=== PATIENT | male | born 1960 | race Caucasian/White ===

== ENCOUNTER 2018-08-22 15:45 | Emergency (ER) | payer MEDICAID ==
[~2018-08-22] VITALS: Ht 167.6 cm; Wt 96.7 kg
[2018-08-22 15:53] VITALS: BP 159/94; PULSE 101; RESP 20; Ht 167.6 cm; Wt 96.7 kg
[2018-08-22] MEDS ORDERED: CEPH-443 PO (17:55)
[2018-08-22] MEDS ORDERED: SULF1TAB31 PO (17:55)
[2018-08-22] MEDS ORDERED: BACITRACIN 0.9 GM OINT TOP ONE (18:00)
--- NOTE | 2018-08-23 14:01 | ERD ---
ER Documentation Chief Complaint Chief Complaint Complains of a abscess to left abdominal wall HPI 57-year-old male with type 2 diabetes presents with complaint of abscess to the left abdominal wall. States that it started 1 week ago and has been getting bigger. States that it is nontender to palpation. Denies any treatments. Denies any fevers, abdominal pain, chills, nausea, vomiting, diarrhea. ROS All systems reviewed and are negative except as per history of present illness. Medications Home Meds Active Scripts Sulfamethoxazole/Trimethoprim* (Bactrim Ds* Tablet) 1 Each Tablet, 1 TAB PO BID for abscess for 7 Days, #14 TAB Prov:KARTHIKEYAN JORDAN 08/22/18 Cephalexin* (Keflex*) 500 Mg Capsule, 500 MG PO QID for abscess for 7 Days, CAP Prov:KARTHIKEYAN JORDAN 08/22/18 Allergies Allergies: Coded Allergies: No Known Allergy (Unverified , 08/22/18) PMhx/Soc Medical and Surgical Hx: pt denies Medical Hx, pt denies Surgical Hx Hx Alcohol Use: No Hx Substance Use: No Hx Tobacco Use: No Smoking Status: Never smoker FmHx Family History: No diabetes, No coronary disease, No other Physical Exam Vitals Vital Signs Date Temp Pulse Resp B/P (MAP) Pulse Ox O2 O2 Flow FiO2 Time Delivery Rate 08/22/18 98.1 101 20 159/94 97 15:53 (115) Physical Exam Const: No acute distress Head: Atraumatic Eyes: Normal Conjunctiva ENT: Normal External Ears, Nose and Mouth. Neck: Full range of motion. No meningismus. Resp: Clear to auscultation bilaterally Cardio: Regular rate and rhythm, no murmurs Abd: Soft, non tender, non distended. Normal bowel sounds. Proximally 4 cm indurated mass, nonfluctuant nontender to palpation, with erythema noted over the left abdominal wall. Mass appears to be self draining. No lymphatic streaking noted. No cellulitis noted. Skin: No petechiae or rashes Back: No midline or flank tenderness Ext: No cyanosis, or edema Neur: Awake and alert Psych: Normal Mood and Affect Results 24 hrs Current Medications Medications Dose Sig/Lacey Start Time Status Last (Trade) Ordered Route PRN Stop Time Admin Dose Reason Admin Bacitracin 1 applic ONCE ONCE 08/22/18 DC (Bacitracin TOP 18:00 Oint (Ud)) 08/22/18 18:01 Procedures/MDM 57-year-old male with type 2 diabetes presents with complaint of abscess to the left abdominal wall. States that it started 1 week ago and has been getting bigger. States that it is nontender to palpation. Denies any treatments. Denies any fevers, abdominal pain, chills, nausea, vomiting, diarrhea. Abscess is indurated and nonfluctuant and nontender to palpation, therefore there is no indication for incision and drainage at this time. Abscess appears to be contained within the exterior of the abdominal wall, just below the dermis, and not communicating with any other organs. Patient was given Rx for Bactrim and Keflex and advised to use warm compresses and return in 1 week if the abscess is not resolved. Low suspicion for cellulitis, sepsis, or any other emergent con dition. Patient discharged with strict ER precautions. Patient advised to follow up with PMD. All questions answered at discharge. Departure Diagnosis: Primary Impression: Abscess Condition: Stable Patient Instructions: Abscess, Antiobiotic Treatment Only Referrals: [facility] YOU HAVE RECEIVED A MEDICAL SCREENING EXAM AND THE RESULTS INDICATE THAT YOU DO NOT HAVE A CONDITION THAT REQUIRES URGENT TREATMENT IN THE EMERGENCY DEPARTMENT. FURTHER EVALUATION AND TREATMENT OF YOUR CONDITION CAN WAIT UNTIL YOU ARE SEEN IN YOUR DOCTORS OFFICE WITHIN THE NEXT 1-2 DAYS. IT IS YOUR RESPONSIBILITY TO MAKE AN APPOINTMENT FOR FOLOW-UP CARE. IF YOU HAVE A PRIMARY DOCTOR --you should call your primary doctor and schedule an appointment IF YOU DO NOT HAVE A PRIMARY DOCTOR YOU CAN CALL OUR PHYSICIAN REFERRAL HOTLINE AT IF YOU CAN NOT AFFORD TO SEE A PHYSICIAN YOU CAN CHOSE FROM THE FOLLOWING [facility] [address] [facility] [address] [facility]. [facility] [address] [facility] [address] [facility] [address] [facility]. [facility]. [address] Additional Instructions: FOLLOW UP WITH YOUR PRIMARY CARE PHYSICIAN TOMORROW.Return in 1 week for follow up with abscess is still there. If abscess is growing, painful, or fevers or chills return immediately to the emergency room. Return to this facility if you are not improving as expected. KARTHIKEYAN JORDAN Aug 23, 2018 14:01
== END 2018-08-22 18:32 | disposition home or self-care (01) ==
LOC: FTE 15:45
DX: L02.211 Cutaneous abscess of abdominal wall (principal); E11.9 Type 2 diabetes mellitus without complications
CPT/HCPCS: 99283

== ENCOUNTER 2018-10-03 18:37 | Emergency (ER) | payer MEDICAID, OTHER ==
[~2018-10-03] VITALS: Ht 172.7 cm; Wt 99.7 kg
[~2018-10-03 18:37] MED LIST: CEPH-443 PO; SULF1TAB31 PO
[2018-10-03 18:43] VITALS: Ht 172.7 cm; Wt 99.7 kg
[2018-10-03] MEDS ORDERED: METF100010 PO (19:44)
--- NOTE | 2018-10-03 19:44 | ERD ---
ER Documentation Chief Complaint Chief Complaint LT SIDED CP RADIATING TO BACK X3 WEEKS, LT FACIAL NUMBNESS X2 DAYS, DROOP HPI This is a 58-year-old male with a history of left-sided chest pain for the last 3 weeks, also with history of right-sided facial droop for the last 2 days. He also endorses a mild headache, he denies shortness of breath, he has had no upper extremity or lower extremity weakness, no speech changes. ROS All systems reviewed and are negative except as per history of present illness. Medications Home Meds Reported Medications [Insulin] No Conflict Check, 16 UNIT SQ QHS 10/03/18 Gabapentin* (Gabapentin*) 300 Mg Capsule, 300 MG PO QHS, #60 CAP 10/03/18 Atorvastatin* (Atorvastatin*) 40 Mg Tablet, 40 MG PO QHS, #30 TAB 10/03/18 Aspirin* (Aspirin* EC) 81 Mg Tablet.dr, 81 MG PO DAILY, TAB 10/03/18 Glimepiride* (Glimepiride*) 2 Mg Tablet, 2 MG PO WITH BREAKFAST, TAB 10/03/18 Metformin Hcl* (Metformin Hcl*) 1,000 Mg Tablet, 1000 MG PO WITH BREAKFAST DINNE, #60 TAB 10/03/18 Discontinued Scripts Sulfamethoxazole/Trimethoprim* (Bactrim Ds* Tablet) 1 Each Tablet, 1 TAB PO BID for abscess for 7 Days, #14 TAB Prov:KARTHIKEYAN JORDAN 08/22/18 Cephalexin* (Keflex*) 500 Mg Capsule, 500 MG PO QID for abscess for 7 Days, CAP Prov:KARTHIKEYAN JORDAN 08/22/18 Allergies Allergies: Coded Allergies: No Known Allergy (Unverified , 10/03/18) PMhx/Soc History of Surgery: Yes (neck, l-spine) Hx Cardiac Disorders: Yes (htn, cholesterol) Hx Alcohol Use: No Hx Substance Use: No Hx Tobacco Use: No Smoking Status: Never smoker Physical Exam Vitals Vital Signs Date Temp Pulse Resp B/P (MAP) Pulse Ox O2 O2 Flow FiO2 Time Delivery Rate 10/03/18 98.2 107 19 177/107 99 18:43 (130) Physical Exam Const: No acute distress Head: Atraumatic Eyes: Normal Conjunctiva ENT: Normal External Ears, Nose and Mouth. Neck: Full range of motion. No meningismus. Resp: Clear to auscultation bilaterally Cardio: Regular rate and rhythm, no murmurs Abd: Soft, non tender, non distended. Normal bowel sounds Skin: No petechiae or rashes Back: No midline or flank tenderness Ext: No cyanosis, or edema Neur: There is noted right-sided facial droop affecting the entire face, otherwise cranial nerves II through XII intact, strength is 5 out of 5 bilaterally, there is no cerebellar ataxia, normal [id number], no pronator drift Psych: Normal Mood and Affect Result Diagram: 10/03/18191310/03/181913 Results 24 hrs Laboratory Tests Test 10/03/18 19:14 White Blood Count 8.0 10^3/ul Red Blood Count 4.88 10^6/ul Hemoglobin 14.4 g/dl Hematocrit 41.7 % Mean Corpuscular Volume 85.5 fl Mean Corpuscular Hemoglobin 29.5 pg Mean Corpuscular Hemoglobin Concent 34.5 g/dl Red Cell Distribution Width 11.8 % Platelet Count 242 10^3/UL Mean Platelet Volume 9.6 fl Immature Granulocytes % 0.400 % Neutrophils % 51.3 % Lymphocytes % 38.4 % Monocytes % 8.9 % Eosinophils % 0.5 % Basophils % 0.5 % Nucleated Red Blood Cells % 0.0 /100WBC Immature Granulocytes # 0.030 10^3/ul Neutrophils # 4.1 10^3/ul Lymphocytes # 3.1 10^3/ul Monocytes # 0.7 10^3/ul Eosinophils # 0.0 10^3/ul Basophils # 0.0 10^3/ul Nucleated Red Blood Cells # 0.0 10^3/ul Prothrombin Time 12.9 Sec Prothrombin Time Ratio 1.0 INR International Normalized Ratio 0.96 Activated Partial Thromboplast Time 45.0 Sec Sodium Level 142 mmol/L Potassium Level 4.2 mmol/L Chloride Level 103 mmol/L Carbon Dioxide Level 28 mmol/L Anion Gap 11 Blood Urea Nitrogen 20 mg/dl Creatinine 0.83 mg/dl Est Glomerular Filtrat Rate mL/min > 60 mL/min Glucose Level 310 mg/dl Hemoglobin A1c 9.6 % Calcium Level 10.0 mg/dl Total Bilirubin 0.4 mg/dl Direct Bilirubin 0.00 mg/dl Indirect Bilirubin 0.4 mg/dl Aspartate Amino Transf (AST/SGOT) 17 IU/L Alanine Aminotransferase (ALT/SGPT) 17 IU/L Alkaline Phosphatase 72 IU/L Troponin I < 0.012 ng/ml Total Protein 8.0 g/dl Albumin 4.5 g/dl Globulin 3.50 g/dl Albumin/Globulin Ratio 1.28 Current Medications Medications Dose Sig/Lacey Start Time Status Last (Trade) Ordered Route PRN Stop Time Admin Dose Reason Admin IV Flush 10 ml STK-MED 10/03/18 DC (NS 10 ml) ONCE .ROUTE 19:47 10/03/18 19:48 Sodium 100 ml @ ud STK-MED 10/03/18 DC Chloride ONCE .ROUTE 19:47 10/03/18 19:48 Iohexol 100 ml @ ud STK-MED 10/03/18 DC ONCE .ROUTE 19:47 10/03/18 19:48 Iohexol 50 ml STK-MED 10/03/18 DC (Omnipaque ONCE .ROUTE 19:47 10/03/18 350mg/ ml) 19:48 [place] [address] Radiology Main Line: [phone] DIAGNOSTIC IMAGING REPORT Patient: BETTIE LEWIS : 1960 Age: 58 Sex: M MR #: [id number] DOS: 10/03/18 185 Ordering MD: CHICO MORALES MD Location: E/R Room/Bed: PROCEDURE: XR Chest. CLINICAL INDICATION: Dyspnea. TECHNIQUE: Single frontal chest x-ray. COMPARISON: None available FINDINGS: Diminished lung volumes with compressive changes. Vascular crowding and bilateral basilar atelectasis. No acute infiltrate is seen, effusion, or pneumothorax. The cardiomediastinal silhouette is normal. Soft tissues and bony structures are unremarkable. IMPRESSION: 1. Low lung volumes with compressive changes and basilar atelectasis. 2. Otherwise, unremarkable chest x-ray. No acute infiltrate is seen. RPTAT: HMJB .Gumaro Smith MD, Date Time Electronically viewed and signed by .Gumaro Smith MD, on 10/03/2018 19:19 .B/ CC: CHICO MORALES MD [phone] Procedures/MDM This is a 58-year-old male who presents for evaluation of right-sided facial droop, his symptomatology was consistent with a Nolan's palsy, however the patient had some risk factors for central cause, so a CT brain and CTA were performed, CT brain was negative for acute findings, and the CTA showed patent vessels, at this point I suspect most likely diagnosis is Nolan's palsy, the patient has no other neurologic deficits, and I do not suspect an acute stroke. Patient was given instructions on eye care, discharge on artificial tears, acyclovir, would defer steroids, with patient's history of diabetes, at discharge she was in no distress. Departure Diagnosis: Primary Impression: Nolan's palsy Condition: Stable CHICO MORALES MD October 03, 2018 19:44
[2018-10-03] MEDS ORDERED: ASPI-817 PO (19:45)
[2018-10-03] MEDS ORDERED: GLIM2TAB PO (19:45)
[2018-10-03] MEDS ORDERED: ATOR40TA68 PO (19:45)
[2018-10-03] MEDS ORDERED: GABA300C16 PO (19:46)
[2018-10-03] MEDS ORDERED: IOHEXOL 100 ML ONE (19:47)
[2018-10-03] MEDS ORDERED: IOHEXOL 350MG/ML 50 ML BTL ONE (19:47)
[2018-10-03] MEDS ORDERED: INSULIN SQ (19:47)
[2018-10-03] MEDS ORDERED: SOD CHLORIDE 0.9% 100 ML ONE (19:47)
[2018-10-03] MEDS ORDERED: ACYC800T5 PO (21:17)
[2018-10-03] MEDS ORDERED: DEXT1DRO7 OP (21:17)
[2018-10-03 21:28] VITALS: BP 149/71; PULSE 79; RESP 19
== END 2018-10-03 21:33 | disposition home or self-care (01) ==
LOC: E/R 18:37
DX: G51.0 Bell's palsy (principal); I10 Essential (primary) hypertension; E11.9 Type 2 diabetes mellitus without complications; Z79.82 Long term (current) use of aspirin; Z79.4 Long term (current) use of insulin
CPT/HCPCS: 36415; 70450; 70496; 70498; 71045; 80053; 83036; 84484; 85025; 85610; 85730; 93005; Q9967; Z7502; Z7610